=== PATIENT | male | born 1940 | race Caucasian/White ===

== ENCOUNTER 2017-12-05 11:16 | Day surgery (SDC) | payer MEDICARE, SELFPAY ==
[2017-11-28 09:25] VITALS: BP 111/74; PULSE 74; RESP 16; TEMP 37; O2SAT 96; BMI 32.2
--- NOTE | 2017-11-28 09:30 | EKG12_ITS ---
Test Reason : Blood Pressure : / mmHG Vent. Rate : 060 BPM Atrial Rate : 060 BPM P-R Int : 218 ms QRS Dur : 104 ms QT Int : 376 ms P-R-T Axes : 060 -39 040 degrees QTc Int : 376 ms Sinus rhythm with marked sinus arrhythmia with 1st degree A-V block Left axis deviation Abnormal ECG Confirmed by ROSENDO MANLEY, AYANNA ([id number]), marketing editor SUJEY CORDOVA ([id number] on 11/29/2017 1:00:54 PM Referred By: JITENDRA SALINAS Confirmed By:AYANNA ROBBINS MD
[2017-11-28 10:31] LABS: Hematocrit 46.4 % (40-54); Mean Corp Hgb Conc 34.5 g/gl (32-36); Mean Corpuscular Hgb 30.4 pg (27.0-32.0); Mean Corpuscular Volume 88.2 fL (80-94); Mean Platelet Vol. 10.6 fl (6.2-12.0); Platelet Count 139 K/mm3 (150-450); RBC Distribution Width CV 12.6 % (11.6-14.6); RBC Distribution Width SD 40.9 fl (35.1-43.9); Red Blood Count 5.26 M/mm3 (4.6-6.2); White Blood Count 5.7 K/mm3 (4.4-11.0)
[2017-11-28 10:34] LABS: Scan Indicated on CBC? Y/N NO
[2017-11-28 10:56] LABS: Anion Gap 6 (5-15); BUN 16 mg/dL (7-18); BUN/Creat Ratio 17.4 RATIO (10-20); Calcium,Total 9.6 mg/dL (8.5-10.1); Chloride 106 mmol/L (98-107); Creatinine, Serum 0.92 mg/dL (0.70-1.30); EST Glomerular Filtration Rate 85 mL/min (>60); Est Glom Filt Rate - Afr Amer 102 mL/min (>60); Estimated Creatinine Clearance 59.72 ml/min; Glucose 127 mg/dL (74-106); Potassium 3.6 mmol/L (3.5-5.1); Sodium Level 143 mmol/L (136-145)
[2017-12-05] VITALS (9 sets, daily range): BP systolic 111–136; BP diastolic 67–86; PULSE 73–102; RESP 16–18; TEMP 35.7–36.8; O2SAT 92–99; BMI 32.2
--- NOTE | 2017-12-05 | PROS_PTH ---
PATIENT: KAY LONG LOC: [facility] U#:[id number] AGE/SX: 77/M ROOM: RE12/05/[address]: Dr. Thuan Cabrales MD : 1940 BED: DIS: 12/06/2017 SPEC #: [id number] RECD: 12/05/17 08:53 STATUS: LINDSEY FLETCHER #: [id number] ESTRELLITA: 12/05/17 00:[address]: Thuan Cabrales DEPT: SURGICAL PATHOLOGY RECD BY: Omero Johnson ENTERED: 12/06/17 08:54 SP TYPE: TURP OTHR DR: TIFF Saeed Tissues: Prostate, NOS Procedures: Surgery Specimen Level IV HEADER OPERATION: Cystoscopy, TUR of prostate PRE-OP DIAGNOSIS: Benign prostatic hypertrophy TISSUE SUBMITTED: Prostate chips MICROSCOPIC DIAGNOSIS Prostate chips, TUR: Benign prostatic hyperplasia, glandular and stromal type. Focal chronic inflammation and basal cell hyperplasia. SJ:lee 12/07/17 MICROSCOPIC DESCRIPTION Slides are reviewed. GROSS DESCRIPTION Received is one container labeled with the patient's name and designated prostate chips. The specimen consists of multiple irregular fragments of pink-sargent, rubbery, soft tissue that in aggregate weigh 26.9 gm and measure in aggregate 8 x 6 x 3 cm. Lathe Operator Contact Lens tissue is submitted in 12 cassettes. / CHRISTINA:lee 12/06/17 TC:5 CPT: 09430
[2017-12-05] MEDS: Cefazolin 2 GM in 0.9% Normal Saline 100 ML IV (12:17)
--- NOTE | 2017-12-05 13:47 | OP.PCM_ITS ---
Problem List (1) BPH with obstruction/lower urinary tract symptoms Status: Acute Report of Operation Date of Procedure: 12/05/17 Pre-Operative Diagnosis: BPH with obstruction and obstructive voiding symptoms Post-Operative Diagnosis: Same Surgery/Procedure Performed:: Transurethral resection of the prostate Description of Surgical Findings:: 77-year-old male taken back to the operating room after smooth induction of general anesthesia he was placed in dorsal lithotomy position. The penis and testicles were prepped and draped in usual sterile fashion. Went into the bladder with a 26 Martiniquais continuous flow resectoscope. I did dilate the meatus in order to allow the scope to pass. This was done very easily in an atraumatic fashion. Once inside the bladder then inspected the bladder no tumors or stones are seen within the bladder he did had a very large obstructive prostate with bilateral hypertrophy no median lobe. I then resected the prostate and resected the lateral lobe on the right side first back to the verumontanum. And then resected the left lobe of the prostate back to the verumontanum Ellik out all the chips obtain hemostasis and then very carefully resected near the apical tissue close to the verumontanum to develop a nice wide open channel from the Colleen into the bladder and then pulled back behind the sphincter the sphincter was still intact and and coapted together went into the bladder made sure that all the chips are out obtained good hemostasis place a catheter in the bladder put on continuous bladder irrigation and patient was extubated tacked back to PACU in good condition with the urine nice and clear. The resection time took about an hour had a complete open resection. Type of Anesthesia:: General Drains: 22fr 3 way - Admit VTE Documentation VTE Present on Admission: No VTE Mechan Device Prophylaxis: SCD's Reason prophylaxis not ordered:: Treatment Not Indicated
[2017-12-05] MEDS: Ciprofloxacin 500 MG Tablet PO (21:15)
[2017-12-05] MEDS: Atorvastatin Calcium 20 MG Tablet PO (21:15)
[2017-12-05] MEDS: Docusate Sodium 100 MG Capsule PO (21:15)
[2017-12-06] MEDS: 0.9% Normal Saline 1,000 ML 75 ML IV (01:26)
[2017-12-06 02:00] VITALS: BP 115/68; PULSE 88; RESP 18; TEMP 37; O2SAT 97
--- NOTE | 2017-12-06 06:31 | DCINST_ITS ---
Discharge Diet: Light diet - advance as tolerated Discharge Activity: Return to Normal Activity May shower in (days): 1 Call your doctor if your incision/area has: Continuous Slow Oozing, Sudden Increased Bleeding, Increased Pain/ Swelling, Increased Redness, Foul Smelling Discharge, Swelling at the incision site Call your doctor if you observe: Fever of 101 or Higher Suture Line Care: Avoid Pulling/Pushing, Avoid Pinching/Bending Instructions: Transurethral Resection of the Prostate (TURP): Home Recovery Allergies/Adverse Reactions: Allergies Penicillins Allergy (Verified 11/28/17 08:57) Rash Medications to take at Discharge Doxazosin Mesylate [Cardura] 4 mg PO DAILY 11/28/17 Finasteride [Proscar] 5 mg PO DAILY 11/28/17 Hydrochlorothiazide [Hctz] 25 mg PO DAILY 11/28/17 Lisinopril [Zestril] 40 mg PO DAILY 11/28/17 Multivitamin [Multiple Vitamins] 1 tablet PO DAILY 11/28/17 Om-3/Epa/Dha/Fish Oil/Flax/E [Thera Tears Nutrition Capsule] 3 cap PO DAILY Potassium Chloride 20 meq PO DAILY 11/28/17 Simvastatin [Zocor] 40 mg PO QHS 11/28/17 Ciprofloxacin [Cipro] 500 mg PO BID #14 tab 12/06/17 The following prescriptions were given: Ciprofloxacin [Cipro] 500 mg PO BID #14 tab Primary Care Physician: Yamila Burch PA [Primary Care Provider] - Please Follow Up With: Thuan Cabrales MD When: December 20 at 10am in [facility]
[2017-12-06] MEDS: 0.9% NaCl Peripheral Flush Adult/Peds IV (06:56)
[2017-12-06] MEDS: Pantoprazole Sodium 40 MG Tablet PO (08:45)
[2017-12-06] MEDS: Finasteride 5 MG Tablet PO (08:45)
[2017-12-06] MEDS: Docusate Sodium 100 MG Capsule PO (08:45)
[2017-12-06] MEDS: Multivitamins,Therapeutic Tablet 1 TABLET PO (08:45)
[2017-12-06] MEDS: Lisinopril 40 MG Tablet PO (08:45)
[2017-12-06] MEDS: Doxazosin 4 MG Tablet PO (08:45)
[2017-12-06] MEDS: hydroCHLOROthiazide 25 MG Tablet PO (08:46)
[2017-12-06] MEDS: Ciprofloxacin 500 MG Tablet PO (08:46)
[2017-12-06 09:00] VITALS: BP 118/69; PULSE 96; RESP 18; TEMP 36.7; O2SAT 98
[2017-12-06 15:00] VITALS: BP 113/71; PULSE 89; RESP 18; TEMP 36.6; O2SAT 95
== END 2017-12-06 17:15 | disposition home or self-care (01) ==
LOC: SDC 11:17 → AC 11:18 → MS3 13:06
PROVIDERS: Family Provider Physician Assistant Medical; PCP Physician Assistant Medical; Visit Provider Urology
PROC: (CPT 52601; principal; 2017-12-05 13:05)
DX: N40.1 Benign prostatic hyperplasia with lower urinary tract symptoms (principal); N13.8 Other obstructive and reflux uropathy; Z85.828 Personal history of other malignant neoplasm of skin; E78.00 Pure hypercholesterolemia, unspecified; Z79.82 Long term (current) use of aspirin; Z79.899 Other long term (current) drug therapy; I10 Essential (primary) hypertension; Z87.891 Personal history of nicotine dependence
CPT/HCPCS: 52601; 36415; 80048; 85027; 88305; J3010; J7030; J7120; A4216; J2405

== ENCOUNTER → 2023-02-22 | Outpatient (CLI) | payer MEDICARE, SELFPAY ==
[2023-02-22 10:39] LABS: PSA,Total- Diagnostic 7.53 ng/mL (0.0-4.0)
== END | disposition home or self-care (01) ==
LOC: LAB 09:41
PROVIDERS: PCP Physician Assistant Medical; Referring Provider Urology; Visit Provider Urology
DX: N40.1 Benign prostatic hyperplasia with lower urinary tract symptoms (principal)
CPT/HCPCS: 36415; 84153

== ENCOUNTER 2023-08-05 04:08 | Emergency (ER) | payer MEDICARE, SELFPAY ==
[2023-08-05 04:10] VITALS: BP 139/96; PULSE 67; RESP 16; TEMP 36.4; O2SAT 99; BMI 30.9
--- NOTE | 2023-08-05 04:30 | EKG12_ITS ---
Test Reason : DYSRHYTHMIA Blood Pressure : / mmHG Vent. Rate : 070 BPM Atrial Rate : 070 BPM P-R Int : 254 ms QRS Dur : 096 ms QT Int : 368 ms P-R-T Axes : 052 -49 040 degrees QTc Int : 397 ms Sinus rhythm with sinus arrhythmia with 1st degree A-V block Left anterior fascicular block Cannot rule out Inferior infarct (masked by fascicular block?) , age undetermined Abnormal ECG Confirmed by BEATA MANLEY, MALINDA ([id number]), news assignment editor SONU CHOUDHARY ([id number]) on 08/13/2023 7:03:15 AM Referred By: THA Confirmed By:ARNAV COTA MD
--- NOTE | 2023-08-05 04:30 | RAD_ITS ---
INDICATION: Preop EXAMINATION/TECHNIQUE: X-RAY - XR Chest 1 View AP portable. 4:42 AM COMPARISON: None. FINDINGS: LINES/DEVICES: None. LUNGS: No consolidation. No pneumothorax. MEDIASTINUM: Aorta is atherosclerotic. CARDIAC SILHOUETTE: Not enlarged. BONES AND SOFT TISSUES: No acute abnormalities. RAD/Chest 1 View (Portable) IMPRESSION: No evidence of active intrathoracic disease. Electronically Signed: Brigitte López MD at 5:07 EST ,
--- NOTE | 2023-08-05 04:35 | EX.ED.DYSGE1 ---
HPI History of Present Illness Chief Complaint: Lower Extremity Injury Detail of Chief Complaint: Refill tingling left foot Informant: patient and spouse/S.O. Onset/Context/Timing Onset: Today and Hours (Approximately 0200) Context: Sudden Onset Timing: Continuous Quality: Pain Location: Left foot Current Severity: Mild Maximum Severity: Moderate Worsened by: Nothing specific Relieved by: Nothing Associated Symptoms Associated Symptoms: Tingling/paresthesia Narrative Narrative: Patient is a 83-year-old male who is very hard of hearing with history of hypertension, hypercholesterolemia who presents because of abrupt onset of pain and tingling left foot. He has no history of atrial fibrillation or dysrhythmia. He denies symptoms of claudication. He does report intermittent pain in his left leg. Patient had water 2 hours prior to presentation. Patient has not eaten since last evening. He is not on an anticoagulant. Prior similar symptoms: No Recent Illness/Hospitalization: No [facility] Medical History Mcguire's palsy Inguinal hernia Neuropathy Home Medications multivitamin (Multiple Vitamins tablet) 1 tab PO DAILY 11/28/17 [History Last Taken Unknown] potassium chloride 10 mEq tablet,extended release 20 meq PO DAILY 11/28/17 [History Last Taken Unknown] aspirin 81 mg capsule 81 mg PO DAILY 08/05/23 [History Last Taken Unknown] carboxymethylcellulose sodium 0.25 % eye drops in a dropperette (TheraTears) 1 drp EACH EYE Q8H 08/05/23 [History Last Taken Unknown] furosemide 20 mg tablet 20 mg PO DAILY 08/05/23 [History Last Taken Unknown] rosuvastatin 20 mg tablet (Crestor) 20 mg PO DAILY 08/05/23 [History Last Taken Unknown] spironolactone 50 mg tablet (Aldactone) 50 mg PO DAILY 08/05/23 [History Last Taken Unknown] Allergy/AdvReac Type Severity Reaction Status Date / Time lisinopril Allergy Angioedema Verified 08/05/23 04:10 Penicillins Allergy Rash Verified 08/05/23 04:10 prednisone AdvReac Other Verified 08/05/23 04:10 Surgical History (Updated 08/05/23 @ 04:20 by Diane Bah) H/O heart artery stent S/P TURP Status post Mohs surgery Social History (Updated 08/05/23 @ 04:[address] Guillermo Hernandez MD) household members: spouse Smoking Status: Never smoker substance use type: does not use ROS ROS ED Constitutional Constitutional ED: Denies chills, fever(s), subjective, sweats or weight loss Eyes Eyes: Denies blurry vision, change in vision or diplopia ENT ENT ED: Denies ear pain, rhinorrhea or sore throat Cardiovascular Cardiovascular: Denies chest pain, orthopnea, palpitations or paroxysmal nocturnal dyspnea Respiratory/Chest Respiratory/Chest: Denies cough, dyspnea, dyspnea on exertion, orthopnea or paroxysmal nocturnal dyspnea Gastrointestinal Gastrointestinal: Denies abdominal pain, nausea or vomiting Genitourinary Genitourinary ED: Denies dysuria or hematuria Musculoskeletal Musculoskeletal: Reports other Details: Left foot pain ; Denies arthralgias, back pain, myalgias or neck pain Neurologic Neurologic: Reports paresthesias LLE Hematologic/Lymphatic Hematologic/Lymphatic: Reports systems reviewed and no addt'l complaints, except as documented EXAM Physical Exam Const Vital Signs: 08/05/23 04:10 08/05/23 04:40 Temperature 97.6 F L Temperature Source Temporal Pulse Rate 67 70 Respiratory Rate 16 15 Blood Pressure 139/96 H 150/81 H Blood Pressure Mean 110 104 Pulse Ox 99 97 Positive well nourished and well developed Constitutional Narrative: Patient is very hard of hearing. He is not a good informant. General Appearance ED: well developed and NAD; Negative for cyanotic, diaphoretic or pallor HEENT Reports moist mucous membranes HEENT Narrative: Head is atraumatic and normocephalic. Ears are normal. Patient has hearing aids. Nares patent. Posterior pharynx is normal. Eyes PERRL and EOMs intact bilaterally Neck no lymphadenopathy, supple and no JVD Chest Wall inspection of chest normal and palpation of chest normal Resp normal respiratory effort and clear to auscultation bilaterally Cardio regular rate, regular rhythm, S1 normal heart sound, S2 normal heart sound and no murmurs GI normal to inspection, nondistended, normoactive bowel sounds, non-tender, non-distended and no masses; Negative for hepatosplenomegaly GI Narrative: Palpable pulsatile mass. There is a bruit. Back/Spine no CVA tenderness Thoracic Spine / Upper Back: Negative for thoracic spinal tenderness Lumbar Spine / Lower Back: Negative for lumbar spinal tenderness Extremity Extremity Narrative: Left foot is pale. The foot is cold. There is no palpable popliteal, DP or PT pulse right or left. There is biphasic flow popliteal right and left. There is biphasic flow PT right probable monophasic DP right. There is no flow noted PT or DP on the left. There is no paralysis. He is able to move his toes. Neuro oriented x3, CN's II-XII intact bilaterally and No no sensory deficits noted Neuro Narrative: Altered sensation left foot Sensorium / Orientation: alert Motor Exam: Negative for strength 5/5 throughout Psych mental status grossly normal Skin no rashes or lesions noted and no wounds General Skin Exam: Negative for jaundice or pallor MDM MDM MDM Narrative Medical decision making narrative: 20 was paged after evaluating the patient. He informed that he is out of town. After speaking with and patient they requested transfer to [facility]. 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 Thomas. Spoke to the nurse at the [facility] transfer line. She was informed when he last ate and when he last had a glass of water. He took Tylenol at that time. Basic blood work was obtained. PT PTT was obtained 3 heparinization. EKG. EKG reveals a sinus rhythm. There is no ectopy. History & Record Review Discussion w/independent historian: Patient and Family Additional record(s) reviewed:: Prior outpatient record (Patient had outpatient work-up and surgery for BPH by Dr. Cabezas.) and Prior labs (There are no recent labs. We will compare today's to labs from several years ago.) Lab Data Labs: Laboratory Results - last 24 hr 08/05/23 04:40 WBC 7.5 RBC 5.30 Hgb 16.0 Hct 48.0 MCV 90.6 MCH 30.2 MCHC 33.3 RDW Std Deviation 41.6 RDW Coeff of Shyla 12.6 Plt Count 156 MPV 10.1 Immature Gran % (Auto) 0.300 Neut % (Auto) 61.4 Lymph % (Auto) 26.7 [place] % (Auto) 8.9 Eos % (Auto) 2.3 Baso % (Auto) 0.4 Absolute Neuts (auto) 4.6 Absolute Lymphs (auto) 2.00 Nucleated RBC % 0 PT 13.1 INR 1.0 APTT 30.9 Radiography Chest X-Ray - ED: 1 View and Read by ED Physician (Single view portable chest x-ray is no acute abnormality. Cardiac silhouette and size unremarkable. There is minimal chronic changes noted. Perihilar regions normal. Osseous structures are unremarkable. This is independent reviewed interpreted by me at 0449.) EKG Initial EKG: Attestation: I personally reviewed and interpreted this EKG as follows: Interpretation: Sinus Rhythm (Rate is 70 with a first-degree AV block. MO interval 74 ms per cures duration 96 ms. QT duration 368 ms. There is evidence of a left anterior fascicular block. There is no obvious acute ischemia. There is decreased anterior force noted.) Management Discussion w/another healthcare provider: Beef Boner (Dr. Shubham Salazar) and Other (Nurse for [facility] transfer line at 0445) Treatment and Re-Evaluation :: With nurse Cordelia, transfer line [facility]. Patient was excepted. Patient will be an ER to ER transfer. Time of acceptance 0500. Critical Care Time Critical Care Time: Yes Critical care time (excluding procedures): 30-74 minutes (22 minutes), Including time spent: (3, physical, documentation, interpretation of EKG and chest x-ray. Patient of heparin), Discussing w/Patient &/or Family/Anesthesiologist Assistant (Patient, spouse and granddaughter who is a nurse.), Discussing w/Consultants (Transfer line informing that vascular surgeon informed him and would like heparin started. They were informed that the heparin was started.) and Arranging Admission or Transfer Discharge Plan Triage Chief Complaint: Lower Extremity Injury ED Provider: Guillermo Hernandez Dx/Rx/DC Orders Clinical Impression: Ischemic pain of left foot, BPH with obstruction/lower urinary tract symptoms, Hypertension, Elevated cholesterol Prescriptions: No Action multivitamin [Multiple Vitamins] 1 EACH tablet 1 tab PO DAILY potassium chloride 10 MEQ tablet extended release 20 meq PO DAILY rosuvastatin [Crestor] 20 mg tablet 20 mg PO DAILY spironolactone [Aldactone] 50 mg tablet 50 mg PO DAILY aspirin 81 mg capsule 81 mg PO DAILY TheraTears 0.25 % dropperette 1 drp EACH EYE Q8H furosemide 20 mg tablet 20 mg PO DAILY Primary Care Provider: Yamlia Burch Referrals: Yamila Burch, TIFF [Primary Care Provider] - Disposition Disposition: Acute Care Hospital Discharge Location: [facility]
[2023-08-05 04:40] VITALS: BP 150/81; PULSE 70; RESP 15; O2SAT 97
[2023-08-05 04:48] LABS: Absolute Neutrophil Count 4.6 X10^3/uL (2.0-7.7); Basophil# 0.03 X10^3/uL; Basophil% 0.4 % (0-1); Eosinophil# 0.17 X10^3/uL; Eosinophils% 2.3 % (0-5); Lymphocyte % 26.7 % (19-41); Mean Corp Hgb Conc 33.3 g/dL (32-36); Mean Corpuscular Hgb 30.2 pg (27.0-32.0); Mean Corpuscular Volume 90.6 fL (80-94); Mean Platelet Vol. 10.1 fl (6.2-12.0); Monocyte# 0.67 X10^3/uL; Monocyte% 8.9 % (0-10); NRBC Flagged by Analyzer 0 % (0-5); Neutrophil % 61.4 % (47-70); Platelet Count 156 K/mm3 (150-450); RBC Distribution Width CV 12.6 % (11.6-14.6); RBC Distribution Width SD 41.6 fl (35.1-43.9); White Blood Count 7.5 K/mm3 (4.4-11.0)
[2023-08-05 04:58] LABS: Prothrombin Time (Protime)PT. 13.1 SECONDS (11.7-14.9)
[2023-08-05 04:59] LABS: Partial Thromboplast Time 30.9 Seconds (24.1-36.2)
[2023-08-05 05:02] LABS: Anion Gap 6 (5-15); BUN 18 mg/dL (7-18); BUN/Creat Ratio 17.8 RATIO (10-20); Calcium,Total 9.5 mg/dL (8.5-10.1); Chloride 107 mmol/L (98-107); Creatinine, Serum 1.01 mg/dL (0.70-1.30); EST Glomerular Filtration Rate 75 mL/min (>60); Est Glom Filt Rate - Afr Amer 91 mL/min (>60); Estimated Creatinine Clearance 49.13 ml/min; Glucose 141 mg/dL (74-106); Potassium 3.8 mmol/L (3.5-5.1); Sodium Level 141 mmol/L (136-145)
[2023-08-05] MEDS: Heparin Injection (Vial) 5,000 UNIT/ML VIAL 6000 UNIT IV (05:18)
--- NOTE | 2023-08-05 05:20 | CT_ITS ---
INDICATION: Ischemic left foot -- No flow distal popliteal left lower extremity EXAMINATION: CTA Lower Extremity W/ Contrast Injection (and W/O Contrast Images if performed) TECHNIQUE: Helically acquired images were obtained of the left lower extremity with sagittal and coronal reconstructed images. Individualized dose optimization techniques were used for this CT. IV contrast dosage and agent: 100 mL of Isovue-370. Oral contrast: None. COMPARISON: None. FINDINGS: VISUALIZED PELVIS: Diverticulosis. Enlarged prostate. Partial visualization of a fat-containing right inguinal hernia extending into the scrotum. LEFT LOWER EXTREMITY: COMMON FEMORAL ARTERY: No evidence of significant flow-limiting stenosis. PROFUNDA FEMORIS: No evidence of significant flow-limiting stenosis. FEMORAL ARTERY: No evidence of significant flow-limiting stenosis. POPLITEAL ARTERY: Occluded ANTERIOR TIBIAL ARTERY: Unopacified. TIBIOPERONEAL TRUNK: Unopacified. POSTERIOR TIBIAL ARTERY: Unopacified. PERONEAL ARTERY: Unopacified. CT/CTA LWR EXTR W/O & W/DYE IMPRESSION: Occlusion of the left popliteal artery and no evidence of vascular flow distally. Electronically Signed: Joshua Hansen DO at 6:23 EST ,
[2023-08-05] MEDS: HEPARIN/D5w 25,000 UNITS 25,000 UNITS/250 ML IV.SOLN. 12 UNITS CONT INF (05:21)
[2023-08-05 05:33] VITALS: BP 139/85; PULSE 64; RESP 16; O2SAT 97
[2023-08-05 06:00] VITALS: BP 144/83; PULSE 67; RESP 14; O2SAT 97
[2023-08-05 06:03] VITALS: BP 144/83; PULSE 64; RESP 11; TEMP 36.4; O2SAT 97
--- NOTE | 2023-08-05 07:22 | NURSING ---
0811 CALLED DONALDO, TALKED TO JARRELL. [facility] COMING FROM [facility]
--- NOTE | 2023-08-05 07:23 | NURSING ---
[id number] CALLED [facility]AL[facility], TALKED TO YULISSA. TOLD HER [facility] NEEDS TO COME [facility]
--- NOTE | 2023-08-05 07:23 | NURSING ---
CALLED [facility], TALKED TO JARRELL. [facility]ALDO STILL 10 MIN OUT. TOLD HER IT'S AN EMERGENCY. [facility].
== END 2023-08-05 07:51 | disposition short-term general hospital (02) ==
PROVIDERS: Emergency Provider Emergency Medicine; PCP Physician Assistant Medical; Visit Provider Emergency Medicine
DX: N13.8 Other obstructive and reflux uropathy (principal); N40.1 Benign prostatic hyperplasia with lower urinary tract symptoms; I10 Essential (primary) hypertension; E78.00 Pure hypercholesterolemia, unspecified; M79.672 Pain in left foot; Z95.5 Presence of coronary angioplasty implant and graft
CPT/HCPCS: 71045; 73706; 80048; 85025; 85610; 85730; 93005; 99285; Q9967; A4216

== ENCOUNTER → 2024-02-28 | Outpatient (CLI) | payer MEDICARE, SELFPAY ==
[2024-02-28 16:29] LABS: PSA,Total- Diagnostic 6.83 ng/mL (0.0-4.0)
== END | disposition home or self-care (01) ==
LOC: LAB 13:58
PROVIDERS: PCP Physician Assistant Medical; Referring Provider Nurse Practitioner; Visit Provider Nurse Practitioner
DX: R97.20 Elevated prostate specific antigen [PSA] (principal)
CPT/HCPCS: 36415; 84153